=== PATIENT | male | born 1960 | race Caucasian/White ===

== ENCOUNTER 2016-08-16 09:57 | Day surgery (SDC) | payer OTHER ==
[~2016-08-16] VITALS: Ht 175.3 cm; Wt 90.9 kg
[~2016-08-16 09:57] MED LIST: CELE100; FISHOIL PO; SIMV5TAB32 PO
[2016-08-16 10:44] VITALS: BP 138/91; PULSE 70; RESP 16; TEMP 98.7; O2SAT 97
[2016-08-16] MEDS ORDERED: SIMV40TA PO (10:44)
[2016-08-16] MEDS ORDERED: ATEN25TA PO (10:44)
[2016-08-16 11:40] LABS: APTT (PATIENT) 21.1 SEC (24.3-30.1); PROTHROMBIN TIME - PATIENT 10.6 SEC (9.8-11.6)
[2016-08-16 11:55] LABS: BICARBONATE 31.6 MEQ/L (21.0-32.0); POTASSIUM 4.2 MEQ/L (3.5-5.1)
--- NOTE | 2016-08-16 12:25 | EKG ---
Date Performed: 08/16/2016 Time Performed: 11:04:20 PTAGE: 56 years EKG: Sinus rhythm Inferior T wave changes are nonspecific Borderline ECG COMPARED TO PRIOR ELECTROCARDIOGRAM, PVCs are no longer present. PREVIOUS TRACING : 04/12/2010 02.42 DOCTOR: Walter Rojas Interpretating Date/Time 08/16/2016 12:24:22
[2016-08-16 12:30] LABS: AUTOMATED NEUTROPHIL # 2.9 TH/MM3 (1.8-7.7); BASOPHIL % 0.8 % (0.0-2.0); EOSINOPHIL # 0.1 TH/MM3 (0-0.4); EOSINOPHIL % 1.8 % (0.0-4.0); HEMATOCRIT 49.4 % (39.0-51.0); HEMO FLAGS DIFF FINAL; LYMPH % 28.5 % (9.0-44.0); LYMPHOCYTE # 1.4 TH/MM3 (1.0-4.8); MEAN CELL VOLUME 89.6 FL (80.0-100.0); MEAN CORPUSCULAR HEMOGLOBIN 29.3 PG (27.0-34.0); MEAN CORPUSCULAR HGB CONC 32.7 % (32.0-36.0); MONO % 11.9 % (0.0-8.0); PLATELET COUNT 135 TH/MM3 (150-450); RED BLOOD COUNT 5.52 MIL/MM3 (4.50-5.90); RED CELL DISTRIBUTION WIDTH 14.3 % (11.6-17.2)
[2016-08-16] MEDS ORDERED: HEPARIN-NS/PF INJ 500 ML ONE (12:56)
[2016-08-16] MEDS ORDERED: MIDAZOLAM HCL 2 MG/2 ML VIAL ONE ×2 (12:57→13:28)
--- NOTE | 2016-08-16 13:44 | CATHPROC ---
DataContact HIS Report Study Information Study Number Admission Scheduled Start Study Start [id number] Aug 16 2016 9:57AM 08/16/2016 Aug 16 2016 12:54PM [place] Service Cardiac Catheterization Admit Source Facility Department Other [facility] - [facility] [facility] Physician and Clinical Staff Initial Hanna Esposito Rental Sales Representative Sincere RN, Winston Recorder Maribell Mata,RT(R) Scrub Ozzy Donovan RCIS(BS) Procedures Performed Procedure Location (Site) Vessel Name Angiogram LV LV Ventricle Coronary Angiograms LCA Left Coronary Coronary Angiograms RCA Right Coronary L Heart Cath Wire insertion Fem Art (right) Femoral Art Equipment Time Family Advocate Description Size Mfg Part Number Used/Scraped TRANSDUCER, TRUWION [id number] 13:31 CALVO BORDEN * Used W/STOCKCOCK *[id number] 538-476 *[id number] [id number] *[id number] *[id number] 13:31 MEDLINE [employer] PACK, CCL CUSTOM * Used *[id number] 13:31 [employer] PACER PEN, SKIN DUAL W/ RULER * Used *[id number] 13:31 [employer] WIRE, 3MMJ .035 180CM 180CM Used *[id number] PROBE COVER, STERILE [id number] 13:31 [employer] * Used ULTRASOUND W/ GEL *[id number] 13:31 NAMIC MANIFOLD, 4 PORT * Used *[id number] 13:31 NYCOMED OMNIPAQUE, 350 MG, 150ML 150ML [id number] Used [id number] 13:31 [employer] BLANKET,WARM AIR CCL * Used *[id number] 13:31 [employer] MEDICAL SHEATH, FR4 TERUMO (10CM) FR 4 [id number] Used History: Current Medications Medication Dosage/Unit Route Frequency Last Date/Time Taken Beta Sophie Statins (any) History: Allergies Allergy Reaction Lipitor TACHYCARDIA Ventolin TONGUE SWELLS Niacin History: Risk Factors Family History of Hypertension Dyslipidemia Previous GA Previous Heart Failure Premature CAD No Yes No No No Prior Valve Prior PCI Prior CABG Surgery No No No Cerebrovascular Peripheral Artery Chronic Lung On Dialysis Diabetes Disease Disease Disease No No No No No History: Stress Tests Stress or Imaging Studies Performed Yes Standard Exercise Stress Test No Stress Echo No Stress Test SPECT Stress Test SPECT Result Stress Test SPECT Ischemia Risk/Extent Yes Positive Intermediate Stress Test CMR No Cardiac CTA Coronary Calcium Score No No Labs Hgb (g/dl) Hct (%) WBC (l/cumm) Platelets (thousands) 12.00-18.00 37.00-55.00 4.80-10.80 140.00-450.00 16.2 49.4 5 135 Glucose (mg/dl) BUN (mg/dl) Creatinine (mg/dl) BUN:Creatinine (1:x) 60.00-110.00 8.00-20.00 0.10-9.00 10.00-20.00 81 17 1.0 17 Na (meq/l) K (meq/l) Cl (meq/l) CO2 (mmol/L) Ca (mg/dl) 138.00-146.00 3.80-5.10 101.00-111.00 23.00-30.00 9.00-10.50 141 4.2 106 31.6 9 PT (sec) PTT (sec) INR (PTT:PT) 9.40-11.40 25.10-32.70 0.50-2.00 10.6 21.1 1 CPK-MB (ng/ML) 0.00-7.00 Not Drawn Medication Medication Total Dose (Bolus/Oral) Medication Total Dosage/Unit 1% XYLOCAINE 20 mL FENTANYL 75 mcg VERSED 3 mg Medications (Bolus/Oral) Medication Time Given Dosage/Unit Administered By Reason VERSED 08/16/2016 1:26:48 PM 2 mg Winston Post RN 2 mg VERSED given in lab by Winston Post RN in Right Antecubital via Peripheral IV. FENTANYL 08/16/2016 1:27:01 PM 50 mcg Winston Post RN 50 mcg FENTANYL given in lab by Winston Post RN in Right Antecubital via Peripheral IV. 1% XYLOCAINE 08/16/2016 1:27:32 PM 20 mL Hanna You 20 mL 1% XYLOCAINE given in lab by Hanna You in Right Groin via Subcutaneous. FENTANYL 08/16/2016 1:31:53 PM 25 mcg Winston Post RN 25 mcg FENTANYL given in lab by Winston Post RN via Peripheral IV. VERSED 08/16/2016 1:32:40 PM 1 mg Winston Post RN 1 mg VERSED given in lab by Winston Post RN via Peripheral IV. Medication (Drip) Medication Time Given Dosage/Unit Concentration/Unit Diluent (ml) Solutio n IV Solutions 08/16/2016 1:00:21 PM 0 mL (IV) 500 NaCl .9 Patient arrived on IV Solutions in Right Antecubital via Peripheral IV. Pump/Drip Flow = 20 ml/hr usi ng NaCl .9. Initial Case Assessment Cardiovascular HR Rhythm NIBP Chest Pain 67 reg 133/86 0 Edema Present Skin color Skin None Normal Warm Circulatory - Right Pulses Dorsalis Pedis Femoral 1 1 Scale (0,1,2,3,4,d) Circulatory - Left Pulses Dorsalis Pedis Femoral 1 1 Scale (0,1,2,3,4,d) Circulatory - Lower Extremities Color Lower Right Color Lower Left Normal Normal Neurological State Oriented to time-place- Alert Moves all extremities person Respiration - General Respiration Rate SpO2 (%) (B/min) 13 99 Chronological Log Time Study Chronological Log 12:51:19 Patient arrived via Bed. 12:51:23 Patient Name, D.O.B, / Armband Verified By R.N. 12:51:26 Consent signed by the physician and the patient and verified by the [employer] staff. 12:51:28 Pre-op and post- op instructions given; patient acknowledges understanding of instructions. 12:54:31 Verbal Stimulation=2 Physical Stimulation=2 Airway=2 Respiration=2 TOTAL=8. (0=absent, 1=li mited, 2=present) 12:54:32 Presedation assessment performed by T[employer] T[employer] RN. Vitals capture started with the following parameters, Patient=Adult, Interval=15 min, Initial P povbsdu=485 mmHg, 12:55:58 Deflation Rate=5 mmHg 12:56:31 HR=71 bpm, PYYW=882/86 mmhg, SpO2=98.0 %, Resp=15 B/min, Pain=0, Milton=10, Ramsay=2 12:58:45 Reference ECG taken 12:59:51 Patient has been NPO for More than 6Hrs. 12:59:54 Skin Breakdown-none 13:00:02 Patient Warmer Placed on the Table. 13:00:05 A # 20 IV was noted in the Antecubital (right). Grade = 0 13:00:21 Patient arrived on IV Solutions in Right Antecubital via Peripheral IV. Pump/Drip Flow = 20 ml/hr using NaCl .9. 13:00:38 History and physical on the chart or being dictated. Assessment: Initial Case, HR=67 BPM, Rhythm=reg, FXKR=360/86 mmhg, Chest Pain=0, Edema=None, Co jillian=Normal, Skin = Warm Right Pulses: Toi Ped=1, Femoral=1 Left Pulses: Toi Ped=1, Femoral=1 13:00:39 Lower Right Extremities: Color=Normal Lower Left Extremities: Color=Normal Neurological: State=Alert, Ox3, DELCID Respiration: Resp=13 B/min, SpO2=99 % 13:01:32 Bilateral groins prepped with 2% chlorhexidine, and with a 3 min. waiting time. 13:01:35 HR=71 bpm, HNYB=493/78 mmhg, SpO2=99.0 %, Resp=16 B/min, Pain=0, Milton=10, Ramsay=2 13:01:41 MD paged 13:06:36 HR=87 bpm, HJSY=096/84 mmhg, SpO2=99.0 %, Resp=20 B/min, Pain=0, Milton=10, Ramsay=2 13:10:52 Pressure channel 1 zeroed. 13:11:35 HR=77 bpm, DEIM=817/85 mmhg, BdG0=319.0 %, Resp=15 B/min, Pain=0, Milton=10, Ramsay=2 13:16:36 HR=75 bpm, VBRP=644/81 mmhg, SpO2=97.0 %, Resp=11 B/min, Pain=0, Milton=10, Ramsay=2 13:20:03 POWER INJECTOR LOADED NOW BY Adamaris POST AND VERIFIED BY Candis DONOVAN 13:21:35 HR=73 bpm, WXHT=126/82 mmhg, SpO2=98.0 %, Resp=7 B/min, Pain=0, Milton=10, Ramsay=2 13:25:26 MD arrived. Time Out. Correct patient, correct procedure,correct physician, ,power injector loaded with con trast with surgical team 13:26:22 present. Time Out Concurred by MD, individual staff and HOT DIE PICKER in procedure 13:26:33 Case Start 13:26:34 HR=75 bpm, IAWC=153/82 mmhg, ZgX4=853.0 %, Resp=4 B/min, Pain=0, Milton=10, Ramsay=2 13:26:34 Verbal Stimulation=2 Physical Stimulation=2 Airway=2 Respiration=2 TOTAL=8. (0=absent, 1=li mited, 2=present) 13:26:48 2 mg VERSED given in lab by Winston Post RN in Right Antecubital via Peripheral IV. 13:27:01 50 mcg FENTANYL given in lab by Winston Post RN in Right Antecubital via Peripheral IV. 13:27:18 Case Start 13:27:32 20 mL 1% XYLOCAINE given in lab by Hanna You in Right Groin via Subcutaneous. Access site was Right Femoral Artery. MP KIT AND ULTRASOUND DEVICE 13:30:48 13:31:04 A wire was inserted via Fem Art (right). 13:31:06 A SHEATH, FR4 TERUMO (10CM) FR 4 was advanced into the Fem Art (right) using the Percutaneo us technique. 13:31:35 HR=73 bpm, MLZM=367/80 mmhg, SpO2=92.0 %, Resp=13 B/min, Pain=0, Milton=10, Ramsay=2 13:31:53 25 mcg FENTANYL given in lab by Winston Post RN via Peripheral IV. 13:32:40 1 mg VERSED given in lab by Winston Post RN via Peripheral IV. A JL 4.0 INFINITI CATHETER FR 4 was advanced over a wire. OMNIPAQUE, 350 MG, 150ML 150ML was us ed for 13:32:51 injections. Recorded Pressure: Ao, HR=75, Condition=Condition 1 13:33:49 (Aorta) Ao 108/79/94 13:34:29 The LCA was injected and visualized at various angles. OMNIPAQUE, 350 MG, 150ML 150ML used . 13:35:18 Catheter was removed A 3DRC INFINITI CATHETER FR 4 was advanced over a wire. OMNIPAQUE, 350 MG, 150ML 150ML was used for 13:36:11 injections. 13:36:38 HR=65 bpm, AFKB=105/65 mmhg, SpO2=97.0 %, Resp=11 B/min, Pain=0, Milton=10, Ramsay=2 13:37:28 The RCA was injected and visualized at various angles. OMNIPAQUE, 350 MG, 150ML 150ML used . 13:37:58 Catheter was removed Recorded Pressure: LV, HR=82, Condition=Condition 1 13:39:35 (Left Ventricle) LV 116/2/9 13:39:58 The LV was injected at 8 cc/sec for a total of 32. OMNIPAQUE, 350 MG, 150ML 150ML used. Recorded Pressure: LV, Ao, HR=88, Condition=Condition 1 13:40:49 (Left Ventricle) LV 112/3/14, (Aorta) Ao 117/70/94 13:41:21 Catheter was removed 13:41:33 HR=85 bpm, RXDK=840/75 mmhg, SpO2=97.0 %, Resp=9 B/min, Pain=0, Milton=10, Ramsay=2 13:41:36 Sterile dressing applied to site 13:41:37 No case complications noted. 13:41:38 Cine recording checked. 13:41:44 Bedside Report will be given. 13:41:50 Contrast Scanned 13:41:54 A Left Heart Cath was performed. 13:41:59 Clinical correlaton risk stratification. 13:42:00 Case End End Study - Contrast Media Used In Study Contrast Total Opened (mL) Total Used (mL) Total Wasted (mL) Omnipaque 60 60 0 End Study - Maximum Contrast Load Max Contrast Load (mL) 454.5 End Study - Radiation Exposure Fluoro Time (minutes) 2.2 End Study - Patient Disposition Complications Transferred To No Outpatient Bed
[2016-08-16] MEDS ORDERED: IOHEXOL 350 MG/ML 100 ML BTL (for Cath Lab) OTHER ONE (14:56)
--- NOTE | 2016-08-18 07:49 | MA ---
cc: HANNA YOU M.D., GEORGE MD DATE 08/16/2016 PROCEDURE PERFORMED Cardiac catheterization INDICATION FOR CATHETERIZATION 1. Chest pain 2. Heart fluttering 3. Hyperlipidemia 4. Recent hospital visit with chest pain 5. Abnormal stress test. CONSENT A fully informed consent was obtained for the procedures. The risks of , bleeding, myocardial infarction, stroke, foreseen and unforeseen complications were reviewed. The patient appeared to understand the risks. PROCEDURAL STATEMENT The patient was draped and prepped in the usual manner. The right femoral artery was entered using micropuncture technique via the 4-Swedish sheath. Left and right catheters were used to intubate the left and right coronary arteries, pigtail catheter left ventricle. Multiple views were care. At the end of the catheterization procedure, all catheters were removed. The sheath was left in place in the holding area. FINDINGS 1. Hemodynamics. The aortic pressure was 117/70 with a mean of 94. 2. The left ventricular pressure was 112. The left ventricular end diastolic pressure of 14. There was no evidence of significant gradient on pullback across the LV outflow tract. LEFT VENTRICULOGRAM The overall left ventricular ejection fraction was 60%. There was no evidence of mitral regurgitation. No mural thrombus. CORONARIES The left main was large and free of significant disease. The left anterior descending artery is a large vessel with a medium-sized first diagonal branch and is free of significant disease. The circumflex vessel is a large vessel with a large first obtuse marginal branch, second obtuse marginal branch and third obtuse marginal branch. The system is codominant vessel with a large posterior descending artery and residual posterolateral branch. There is a large RV branch. CONCLUSION Normal LV function. No significant coronary artery disease. PLAN Medical management. Hanna You MD, FRCP,[facility]/JAM /1:51 PM /7:39 AM
== END 2016-08-16 18:25 | disposition home or self-care (01) ==
LOC: HDOC 09:57 → HDIC 09:58 → HDOC 18:25
PROVIDERS: ATTEND Internal Medicine Cardiovascular Disease
DX: R94.31 Abnormal electrocardiogram [ECG] [EKG] (principal); I49.8 Other specified cardiac arrhythmias; E78.5 Hyperlipidemia, unspecified; Z01.818 Encounter for other preprocedural examination
CPT/HCPCS: 80048; 85025; 85610; 85730; 93005; 93458; C1769; C1893; J1644; J2250; J3010; Q9967